=== PATIENT | male | born 1945 | race Hispanic/Latino ===

== ENCOUNTER 2025-06-25 09:11 | Emergency (ER) | payer OTHER ==
[~2025-06-25] VITALS: Ht 175.3 cm; Wt 95.3 kg
--- NOTE | 2025-06-25 10:51 | ERN ---
General Chief Complaint: Urinary Retention Stated Complaint: URINARY RETENTION Time Seen by MD: 09:16 Source: patient History of Present Illness Initial Comments Patient is a an 80-year-old male coming in complaining of Alexander catheter malfunction. Per patient he has a Alexander catheter placed a couple of days ago but noticed that last night it was not working. He is here for further evaluation. Allergies: Coded Allergies: No Known Drug Allergies (Unverified Allergy, Unknown, 06/25/25) Past Medical History Past Medical History: Hypertension, Other Medical History Other: prostate issue Past Surgical History: None ROS Dictation CONSTITUTIONAL: No chills, no fever, no weakness, no diaphoresis, no malaise. HEAD/FACE: No signs of trauma. EENT: No eye pain, no blurred vision, no tearing, no double vision, no ear pain, no ear discharge, no nose pain, no nasal congestion, no throat pain, no throat swelling, no mouth pain. RESPIRATORY: No cough, no orthopnea, no SOB, no stridor, no wheezing. CARDIOVASCULAR: No chest pain, no edema, no palpitations, no syncope. GASTROINTESTINAL/ABDOMINAL: No abdominal pain, no constipation, no diarrhea, no nausea, no vomiting. GENITOURINARY: No abnormal discharge, no dysuria, no frequent urination, no hematuria. No complaints of pain in the genitals. MUSCULOSKELETAL: No back pain, no gout, no joint pain, no joint swelling, no muscle pain, no muscle stiffness, no neck pain. INTEGUMENTARY: No change in color, no change in hair/nails, no dryness, no lesion, no lumps, no rash. NEUROLOGICAL/PSYCH: No anxiety, not depressed, no emotional problem, no headache, no numbness, no pre-existing deficit, no history of seizures, no tremors, no weakness. HEMATOLOGIC/LYMPHATIC: Not anemic, no history of blood clots, no apparent bleeding, no bruising, glands not swollen. All Systems Negative, Except as Noted. Physical Exam Physical Exam Dictation VITAL SIGNS: Reviewed. GENERAL APPEARANCE: Alert, oriented x3, no acute distress, obese. HEAD AND FACE: Non-traumatic. EYES: PERRL, pink conjunctivas, eyelid no trauma, anterior chamber clear. EARS: Pinnas intact and no signs of trauma or erythema. Ear canals clear and no discharge. TMs no erythema. NOSE: No discharge, no bleeding. OROPHARYNX: Mouth normal, teeth no caries, tongue pink. Pharynx clear, no erythema. Tonsils no exudates, no abscesses noted. Mucous membrane moist. NECK: Supple, non-tender, no thyromegaly, no masses, no JVD, no bruits. BREAST: Deferred. CHEST: No tenderness, no crepitus, no paradoxical movement, no retractions. LUNGS: Clear, well-ventilated, symmetric, no rales, no wheezing, no rhonchi, no stridor, good breath sounds bilaterally. HEART: Regular rate, regular rhythm, no murmur, no gallops. VASCULAR: No peripheral edema. ABDOMEN: Soft, positive bowel sounds, nondistended, no guarding, nontender, no rebound, no masses no hepatomegaly, no splenomegaly, no Moreno's sign, no hernias. RECTAL: Deferred. GENITAL: Alexander catheter in place leaking NEUROLOGICAL: Normal speech, gross motor function intact, gross sensory function intact. MUSCULOSKELETAL: Neck nontender, full range of motion, back nontender, full range of motion. EXTREMITIES: Nontender, full range of motion. SKIN: Color pink, dry, no turgor, no rash, no lacerations, no abrasions, no contusions. LYMPHATICS: Deferred. Results Laboratory and Microbiology Labs Reviewed?: Yes MDM MDM: Differential diagnosis: Alexander catheter malfunction, Alexander catheter replacement, BPH Rationale: Tests considered and ordered secondary to shared decision making include: Previous outside records reviewed: Old ER visits. Risk of complication and/or morbidity or mortality of patient management: None Medications-Per medication reconciliation Need for hospitalization: Patient does not meet criteria for hospitalization. Need for emergency major/minor surgery: No Patient is a an 80-year-old gentleman coming in due to Alexander catheter malfunction. Alexander catheter was replaced working properly patient will be discharged in stable condition. ED Course Orders Procedure Category Date Status Time *Nursing CPOE 06/25/25 Transmitted Communication: 09:56 Vital Signs Date Time Temp Pulse Resp B/P (MAP) Pulse Ox O2 Delivery O2 Flow Rate FiO2 06/25/25 11:02 97.7 60 18 133/66 97 Room Air* 0 21 06/25/25 09:21 97.5 58 18 136/62 96 Room Air* 0 21 06/25/25 09:16 97.5 58 18 136/62 96 Room Air 0 DX & DISP Disposition: Discharge Departure Impression: Primary Impression: Malfunction of Alexander catheter Condition: Stable Additional Instructions: FOLLOW-UP WITH PRIMARY CARE PROVIDER IN 1 TO 2 DAYS. TAKE MEDICATIONS DIRECTED HERE IN THE EMERGENCY ROOM. OKAY TO CONTINUE HOME MEDICATIONS UNLESS OTHERWISE DISCUSSED DURING YOUR VISIT IN THE EMERGENCY ROOM TODAY. RETURN TO YOUR NEAREST EMERGENCY ROOM IF SYMPTOMS WORSEN OR IF THERE IS NO IMPROVEMENT. CALL 911 IF YOU NEED IMMEDIATE ASSISTANCE. TAKE TYLENOL [id number] NEEDED AND IF NO CONTRAINDICATIONS ARE PRESENT. INCREASE ORAL HYDRATION. A WOUND CULTURE OR URINE CULTURE WAS ORDERED HERE IN THE EMERGENCY ROOM DEPARTMENT PLEASE FOLLOW-UP WITH PRIMARY CARE PROVIDER AND ADVISE THEM TO GET REPORTS FROM OUR FACILITY. IF YOU HAD ANY ARSENIO WRAP/SPLINTS THAT WERE APPLIED HERE, PLEASE DO NOT REMOVE THEM UNTIL YOU SEE YOUR PRIMARY CARE OR SPECIALTY. Referrals: Referrals: ULISES IBRAHIM MD (PCP) STACY COULTER MD Time of Disposition: 11:06 OZIEL HOOKS MD Jun 25, 2025 10:51
[2025-06-25 11:02] VITALS: BP 133/66; PULSE 60; RESP 18; TEMP 97.7; O2SAT 97
--- NOTE | 2025-06-25 11:12 | NUR ---
REPLACED BERRIOS CATHETER AND LEG BAG, PT TOLERATED WELL. LEG BAG INSTRUCTIONS PROVIDED TO PT.
== END 2025-06-25 11:13 | disposition home or self-care (01) ==
LOC: EDH 09:11
DX: T83.011A Breakdown (mechanical) of indwelling urethral catheter, initial encounter (principal); I10 Essential (primary) hypertension; Y73.8 Miscellaneous gastroenterology and urology devices associated with adverse incidents, not elsewhere classified
CPT/HCPCS: 51702; 99284

== ENCOUNTER 2025-07-12 19:02 | Emergency (ER) | payer OTHER ==
[~2025-07-12] VITALS: Ht 175.3 cm; Wt 99.8 kg
--- NOTE | 2025-07-12 19:57 | NUR ---
ASSUMED PT CARE AT THIS TIME
--- NOTE | 2025-07-12 20:10 | NUR ---
PATIENT STATED BERRIOS INSERTED 2 WEEKS AGO
[2025-07-12 20:11] VITALS: BP 143/70; PULSE 58; RESP 18; TEMP 98; O2SAT 98
--- NOTE | 2025-07-12 20:15 | NUR ---
leg bag changed as ordered
--- NOTE | 2025-07-12 20:16 | ERN ---
General Chief Complaint: Urinary Catheter Problems Stated Complaint: BERRIOS ISSUES Time Seen by MD: 19:09 History of Present Illness Initial Comments 80-year-old male came in for evaluation of his Berrios leg bag which has been leaking. Patient otherwise has no concerns. Allergies: Coded Allergies: No Known Drug Allergies (Unverified Allergy, Unknown, 06/25/25) Past Medical History Past Medical History: High Cholesterol, Other Medical History Other: URINARY RETENTION Past Surgical History: None ROS Dictation None Physical Exam General Appearance: (+) no apparent distress Orientation: (+) alert, (+) oriented x 3 Respiratory: (+) chest non-tender, (+) lungs clear Heart: (+) regular, (+) no gallop Gastrointestinal: (+) soft, (+) non-tender, (+) no organomegaly, (+) bowel vandana nd present MDM MDM: Differential diagnosis: Rationale: Tests considered and ordered secondary to shared decision making include: Previous outside records reviewed: Old ER visits. Risk of complication and/or morbidity or mortality of patient management: None Medications-Per medication reconciliation Need for hospitalization: Patient does not meet criteria for hospitalization. Need for emergency major/minor surgery: No There are no social concerns with this patient. Prescription drug management Prescriptions will include symptomatic care Patient's prior external medical records from other ER visits were reviewed by me as indicated. Prior testing and results from previous visits were reviewed. Prior tests were taken into account with medical decision making and resource utilization, independent historian/historians were used to obtain complete medic al history. I independently interpreted the test that were performed, results were reviewed by me and considered findings on radiology if ordered. Medical management and examination interpretation discussions were had by me with other qualified healthcare professionals as indicated for the patient's care. ED Course Vital Signs Date Time Temp Pulse Resp B/P (MAP) Pulse Ox O2 Delivery O2 Flow Rate FiO2 07/12/25 20:11 98.1 58 18 143/70 98 Room Air* 0 21 07/12/25 19:08 97.9 60 20 176/70 98 Room Air DX & DISP Disposition: Discharge Departure Impression: Primary Impression: Malfunction of Berrios catheter Condition: Stable Referrals: ULISES IBRAHIM MD (PCP) ESTUARDO JUNIOR MD Jul 12, 2025 20:16
== END 2025-07-12 20:48 | disposition home or self-care (01) ==
LOC: EDH 19:02
DX: T83.038A Leakage of other urinary catheter, initial encounter (principal); E78.00 Pure hypercholesterolemia, unspecified; Y73.8 Miscellaneous gastroenterology and urology devices associated with adverse incidents, not elsewhere classified
CPT/HCPCS: 99282

== ENCOUNTER 2025-07-19 18:19 | Emergency (ER) | payer OTHER ==
[~2025-07-19] VITALS: Ht 175.3 cm; Wt 99.8 kg
--- NOTE | 2025-07-19 18:29 | ERN ---
ED Note History of Present Illness Stated Complaint: BERRIOS CATH PROBLEM Chief Complaint: Urinary Catheter Problems Time Seen by MD: 18:21 Dictation: PATIENT IS AN 80-YEAR-OLD MALE COMING IN TODAY WITH COMPLAINTS OF HAVING LEAKING FROM HIS BERRIOS CATHETER. HE STATES THE BERRIOS CATHETER WAS RELEASED LAST NIGHT AT THE [facility] IN [place], [place]. HE STATES HE HAS HAS A BERRIOS CATHETER APPROXIMATELY A MONTH WHEN HE WENT TO THE [facility] TO HAVE IT CHANGED YESTERDAY BECAUSE OF RETENTION. URINALYSIS WAS COLLECTED AND SENT BY THE FACILITY, HE WAS STARTED [id number] P.O. B.I.D.. NO PAIN. Allergies: Coded Allergies: No Known Drug Allergies (Unverified Allergy, Unknown, 06/25/25) Past Medical History Past Medical History: GERD, High Cholesterol, Other Additional Past Medical Hx: URINARY RETENTION Surgical History: None RN Note Reviewed/Agreed w/PFSH: Yes Review of System Dictation CONSTITUTIONAL: NEGATIVE EXCEPT FOR HPI HEAD/FACE: NEGATIVE EXCEPT FOR HPI EENT: NEGATIVE EXCEPT FOR HPI RESPIRATORY: NEGATIVE EXCEPT FOR HPI GASTROINTESTINAL/ABDOMINAL: NEGATIVE EXCEPT FOR HPI GENITOURINARY: NEGATIVE EXCEPT FOR HPI LEAKING BERRIOS CATHETER MUSCULOSKELETAL: NEGATIVE EXCEPT FOR HPI INTEGUMENTARY: NEGATIVE EXCEPT FOR HPI NEUROLOGICAL/PSYCH: NEGATIVE EXCEPT FOR HPI HEMATOLOGIC/LYMPHATIC: NEGATIVE EXCEPT FOR HPI ALL SYSTEMS NEGATIVE, EXCEPT NOTED ABOVE. 13 POINT REVIEW OF SYSTEMS ASSESSED AND ALL NEGATIVE EXCEPT FOR ABOVE. Initial Vital Sign VS Vital Signs Date Time Temp Pulse Resp B/P (MAP) Pulse Ox O2 Delivery O2 Flow Rate FiO2 07/19/25 18:21 97.9 65 18 166/72 97 Room Air 0 07/19/25 18:30 21 Physical Exam Dictation VITAL SIGNS REVIEWED GENERAL APPEARANCE: ALERT, ORIENTED X 3, NO ACUTE DISTRESS, WELL DEVELOPED, NOURISHED. HEAD AND FACE: NON-TRAUMATIC. EYES: PERRL, PINK CONJUNCTIVAS, EYELID NO TRAUMA, ANTERIOR CHAMBER WITH ARCUS SENILIS. EARS: PINNAS INTACT AND NO SIGNS OF TRAUMA OR ERYTHEMA EAR CANALS CLEAR AND NO DISCHARGE TM NO ERYTHEMA NOSE: NO DISCHARGE, NO BLEEDING. OROPHARYNX: MOUTH NORMAL, TONGUE PINK, PHARYNX CLEAR,NO ERYTHEMA, TONSILS NO EXUDATES, NO ABSCESSES NOTED, MUCOUS MEMBRANE MOIST NECK: SUPPLE, NON-TENDER, NO THYROMEGALY, NO MASSES, NO JVD, NO BRUITS BREAST:DEFERRED CHEST:NO TENDERNESS, NO CREPITUS, NO PARADOXICAL MOVEMENT, NO RETRACTIONS LUNGS:CLEAR, WELL-VENTILATED, SYMMETRIC, NO RALES, NO WHEEZING, NO RHONCHI, NO STRIDOR, GOOD BREATH SOUNDS BILATERALLY HEART: REGULAR RATE, REGULAR RHYTHM, NO MURMUR, NO GALLOPS VASCULAR: NO PERIPHERAL EDEMA, ABDOMEN: SOFT, POSITIVE BOWEL SOUNDS, NONDISTENDED, NO GUARDING, NONTENDER, NO REBOUND, NO MASSES NO HEPATOMEGALY, NO SPLENOMEGALY, NO LU'S SIGN, NO HERNIAS. RECTAL: DEFERRED GENITAL: BERRIOS CATHETER IN PLACE WITH CLEAR ALECIA URINE IN BAG. BLADDER NOT PALPABLE. TWENTY YI BERRIOS CATHETERIZATION IN PLACE NEUROLOGICAL: NORMAL SPEECH, MOTOR FUNCTION INTACT, SENSORY FUNCTION INTACT MUSCULOSKELETAL: NECK NONTENDER, FULL RANGE OF MOTION, BACK NONTENDER, FULL RANGE OF MOTION, EXTREMITIES: NONTENDER, FULL RANGE OF MOTION SKIN: COLOR PINK, DRY, NO TURGOR, NO RASH, NO LACERATIONS, NO ABRASIONS, NO CONTUSIONS. LYMPHATIC: DEFERRED Results (Laboratory/Radiology) Labs Reviewed?: Yes ED Course ED Course Orders Procedure Category Date Status Time Bladder Scan CPOE 07/19/25 Transmitted 18:25 Phenazopyridine Hcl PHA 07/19/25 Complete 200 Mg Tab (Pyridium 18:30 Current Medications Medications (Trade) Dose Ordered Sig/Sally Route PRN Reason Start Time Stop Time Status Last Admin Dose Admin Phenazopyridine HCl (PYRIdium HCL 200 MG TAB) 200 mg ONCE ONCE PO 07/19/25 18:30 07/19/25 18:31 DC 07/19/25 19:02 Vital Signs Date Time Temp Pulse Resp B/P (MAP) Pulse Ox O2 Delivery O2 Flow Rate FiO2 07/19/25 18:30 97.9 65 12 166/72 97 Room Air* 0 21 07/19/25 18:21 97.9 65 18 166/72 97 Room Air 0 1908/PATIENT HAS A 150 CC ON BLADDER SCAN. BERRIOS CATHETER IS DRAINING. PATIENT HAS A 20 YI BERRIOS CATHETER IN PLACE THAT WAS PLACED LAST NIGHT. HE WILL BE TREATED FOR BLADDER SPASM WITH PYRIDIUM TOLD SEE HIS PRIMARY CARE DOCTOR Medical Decision Making MDM MEDICAL DECISION-MAKING BASED ON HPI, ASSESSMENT OF BERRIOS CATHETER AND BLADDER SCAN. PATIENT HAS 150 CC URINE IN BLADDER BERRIOS CATHETER DRAINING CLEAR ALECIA URINE. STRONGLY SUSPECT BLADDER SPASM HAS A ETIOLOGY FOR LEAK VERSUS MALFUNCTION PATIENT GIVEN PYRIDIUM AND HAVE HIM FOLLOW UP WITH HIS PRIMARY CARE DOCTOR. DX & DISP Disposition: Discharge Departure Impression: Primary Impression: Bladder spasms Additional Impression: Berrios catheter in place Condition: Stable Scripts Phenazopyridine HCl (Pyridium) 200 Mg Tab 200 MG PO TIDPC for 3 Days, #9 TAB TAKE WITH FOOD TO PREVENT STOMACH UPSET. Prov: MOE LOYOLA 07/19/25 Additional Instructions: FOLLOW-UP WITH PRIMARY CARE PROVIDER IN 1 TO 2 DAYS. TAKE MEDICATIONS D IRECTED HERE IN THE EMERGENCY ROOM. OKAY TO CONTINUE HOME MEDICATIONS UNLESS OTHERWISE DISCUSSED DURING YOUR VISIT IN THE EMERGENCY ROOM TODAY. RETURN TO YOUR NEAREST EMERGENCY ROOM IF SYMPTOMS WORSEN OR IF THERE IS NO IMPROVEMENT. CALL 911 IF YOU NEED IMMEDIATE ASSISTANCE. TAKE TYLENOL OR MOTRIN [id number] NEEDED AND IF NO CONTRAINDICATIONS ARE PRESENT. INCREASE ORAL HYDRATION. A WOUND CULTURE OR URINE CULTURE WAS ORDERED HERE IN THE EMERGENCY ROOM DEPARTMENT PLEASE FOLLOW-UP WITH PRIMARY CARE PROVIDER AND ADVISE THEM TO GET REPEAT PORTS FROM OUR FACILITY. IF YOU HAD ANY ARSENIO WRAP/SPLINTS THAT WERE APPLIED HERE, PLEASE DO NOT REMOVE THEM UNTIL YOU SEE YOUR PRIMARY CARE OR SPECIALTY. CONTINUE AUGMENTIN FROM YOUR ER VISIT LAST NIGHT. TAKE PYRIDIUM DIRECTED 3 TIMES A DAY FOR THE NEXT THREE DAYS. REMEMBER THAT THIS WILL TURN YOUR URINE ORANGE RED. INCREASE YOUR WATER INTAKE AND SEE YOUR PRIMARY CARE DOCTOR IN THE NEXT 1-2 DAYS FOR Referrals: ULISES IBRAHIM MD (PCP) Time of Disposition: 19:10 I have reviewed the case, and I agree with, Diagnosis and Plan MOE LOYOLA Jul 19, 2025 18:29
[2025-07-19] MEDS: PHENAZOpyridine HCL 200 MG TAB 200 MG TABLET PO ONE (19:02)
[2025-07-19] MEDS ORDERED: PHEN-847 PO (19:11)
[2025-07-19 19:16] VITALS: BP 156/66; PULSE 66; RESP 12; TEMP 98.1; O2SAT 98
== END 2025-07-19 19:36 | disposition home or self-care (01) ==
LOC: EDH 18:19
DX: N32.89 Other specified disorders of bladder (principal); E78.00 Pure hypercholesterolemia, unspecified
CPT/HCPCS: 99284

== ENCOUNTER 2025-07-23 18:47 | Emergency (ER) | payer OTHER ==
[~2025-07-23] VITALS: Ht 177.8 cm; Wt 99.5 kg
[~2025-07-23 18:47] MED LIST: PHEN-847 PO
--- NOTE | 2025-07-23 19:54 | ERN ---
General Chief Complaint: Urinary Catheter Problems Stated Complaint: BERRIOS LEAKING Time Seen by MD: 19:48 Source: patient History of Present Illness Initial Comments PATIENT IS A AN 80-YEAR-OLD GENTLEMAN COMING IN COMPLAINING OF A BERRIOS CATHETER PROBLEM. PER PATIENT HE NOTICED BERRIOS CATHETER LEAKING A COUPLE OF DAYS AGO. HE IS HERE FOR FURTHER EVALUATION. Allergies: Coded Allergies: No Known Drug Allergies (Unverified Allergy, Unknown, 06/25/25) Home Meds Active Scripts Phenazopyridine HCl (Pyridium) 200 Mg Tab, 200 MG PO TIDPC for 3 Days, #9 TAB TAKE WITH FOOD TO PREVENT STOMACH UPSET. Prov:MOE LOYOLA CRISIS WORKER 07/19/25 Past Medical History Past Medical History: GERD, High Cholesterol, Other Medical History Other: BPH Past Surgical History: Other Surgical History Other: HEADINJURY-SX ROS Dictation CONSTITUTIONAL: NO CHILLS, NO FEVER, NO WEAKNESS, NO DIAPHORESIS, NO MALAISE. HEAD/FACE: NO SIGNS OF TRAUMA. EENT: NO EYE PAIN, NO BLURRED VISION, NO TEARING, NO DOUBLE VISION, NO EAR PAIN, NO EAR DISCHARGE, NO NOSE PAIN, NO NASAL CONGESTION, NO THROAT PAIN, NO THROAT SWELLING, NO MOUTH PAIN. RESPIRATORY: NO COUGH, NO ORTHOPNEA, NO SOB, NO STRIDOR, NO WHEEZING. CARDIOVASCULAR: NO CHEST PAIN, NO EDEMA, NO PALPITATIONS, NO SYNCOPE. GASTROINTESTINAL/ABDOMINAL: NO ABDOMINAL PAIN, NO CONSTIPATION, NO DIARRHEA, NO NAUSEA, NO VOMITING. GENITOURINARY: NO ABNORMAL DISCHARGE, DYSURIA, NO FREQUENT URINATION, NO HEMATURIA. COMPLAINTS OF PAIN IN THE GENITALS. MUSCULOSKELETAL: NO BACK PAIN, NO GOUT, NO JOINT PAIN, NO JOINT SWELLING, NO MUSCLE PAIN, NO MUSCLE STIFFNESS, NO NECK PAIN. INTEGUMENTARY: NO CHANGE IN COLOR, NO CHANGE IN HAIR/NAILS, NO DRYNESS, NO LESION, NO LUMPS, NO RASH. NEUROLOGICAL/PSYCH: NO ANXIETY, NOT DEPRESSED, NO EMOTIONAL PROBLEM, NO HEADACHE, NO NUMBNESS, NO PRE-EXISTING DEFICIT, NO HISTORY OF SEIZURES, NO TREMORS, NO WEAKNESS. HEMATOLOGIC/LYMPHATIC: NOT ANEMIC, NO HISTORY OF BLOOD CLOTS, NO APPARENT BLEEDING, NO BRUISING, GLANDS NOT SWOLLEN. ALL SYSTEMS NEGATIVE, EXCEPT NOTED. Physical Exam Physical Exam Dictation VITAL SIGNS: REVIEWED. GENERAL APPEARANCE: ALERT, ORIENTED X3, NO ACUTE DISTRESS, OBESE. HEAD AND FACE: NON-TRAUMATIC. EYES: PERRL, PINK CONJUNCTIVAS, EYELID NO TRAUMA, ANTERIOR CHAMBER CLEAR. EARS: PINNAS INTACT AND NO SIGNS OF TRAUMA OR ERYTHEMA. EAR CANALS CLEAR AND NO DISCHARGE. TMS NO ERYTHEMA. NOSE: NO DISCHARGE, NO BLEEDING. OROPHARYNX: MOUTH NORMAL, TEETH NO CARIES, TONGUE PINK. PHARYNX CLEAR, NO ERYTHEMA. TONSILS NO EXUDATES, NO ABSCESSES NOTED. MUCOUS MEMBRANE MOIST. NECK: SUPPLE, NON-TENDER, NO THYROMEGALY, NO MASSES, NO JVD, NO BRUITS. BREAST: DEFERRED. CHEST: NO TENDERNESS, NO CREPITUS, NO PARADOXICAL MOVEMENT, NO RETRACTIONS. LUNGS: CLEAR, WELL-VENTILATED, SYMMETRIC, NO RALES, NO WHEEZING, NO RHONCHI, NO STRIDOR, GOOD BREATH SOUNDS BILATERALLY. HEART: REGULAR RATE, REGULAR RHYTHM, NO MURMUR, NO GALLOPS. VASCULAR: NO PERIPHERAL EDEMA. ABDOMEN: SOFT, POSITIVE BOWEL SOUNDS, NONDISTENDED, NO GUARDING, NONTENDER, NO REBOUND, NO MASSES NO HEPATOMEGALY, NO SPLENOMEGALY, NO LU'S SIGN, NO HERNIAS. RECTAL: DEFERRED. GENITAL: DEFERRED. NEUROLOGICAL: NORMAL SPEECH, GROSS MOTOR FUNCTION INTACT, GROSS SENSORY FU NCTION INTACT. MUSCULOSKELETAL: NECK NONTENDER, FULL RANGE OF MOTION, BACK NONTENDER, FULL RANGE OF MOTION. EXTREMITIES: NONTENDER, FULL RANGE OF MOTION. SKIN: COLOR PINK, DRY, NO TURGOR, NO RASH, NO LACERATIONS, NO ABRASIONS, NO CONTUSIONS. LYMPHATICS: DEFERRED. MDM MDM: DIFFERENTIAL DIAGNOSIS: URINE BERRIOS CATHETER PROBLEM, BERRIOS CATHETER PROBLEM RATIONALE: TESTS CONSIDERED AND ORDERED SECONDARY TO SHARED DECISION MAKING INCLUDE: PREVIOUS OUTSIDE RECORDS REVIEWED: OLD ER VISITS. RISK OF COMPLICATION AND/OR MORBIDITY OR MORTALITY OF PATIENT MANAGEMENT: NONE MEDICATIONS-PER MEDICATION RECONCILIATION NEED FOR HOSPITALIZATION: PATIENT DOES NOT MEET CRITERIA FOR HOSPITALIZATION. NEED FOR EMERGENCY MAJOR/MINOR SURGERY: NO THERE ARE NO SOCIAL CONCERNS WITH THIS PATIENT. PRESCRIPTION DRUG MANAGEMENT PRESCRIPTIONS WILL INCLUDE SYMPTOMATIC CARE PATIENT'S PRIOR EXTERNAL MEDICAL RECORDS FROM OTHER ER VISITS WERE REVIEWED BY ME INDICATED. PRIOR TESTING AND RESULTS FROM PREVIOUS VISITS WERE REVIEWED. PRIOR TESTS WERE TAKEN INTO ACCOUNT WITH MEDICAL DECISION MAKING AND RESOURCE UTILIZATION, INDEPENDENT HISTORIAN/HISTORIANS WERE USED TO OBTAIN COMPLETE MEDICAL HISTORY. I INDEPENDENTLY INTERPRETED THE TEST THAT WERE PERFORMED, RESULTS WERE REVIEWED BY ME AND CONSIDERED FINDINGS ON RADIOLOGY IF ORDERED. MEDICAL MANAGEMENT AND EXAMINATION INTERPRETATION DISCUSSIONS WERE HAD BY ME WITH OTHER QUALIFIED HEALTHCARE PROFESSIONALS INDICATED FOR THE PATIENT'S CARE. ED Course Orders Procedure Category Date Status Time Maintain Berrios CPOE 07/23/25 Transmitted 19:55 Vital Signs Date Time Temp Pulse Resp B/P (MAP) Pulse Ox O2 Delivery O2 Flow Rate FiO2 07/23/25 19:45 97.7 61 18 144/63 96 Room Air 11:57 p.m.: Berrios replaced. Larger Berrios inserted. Delay of care secondary to lack of nurses and lack of rooms. We will discharge the patient home DX & DISP Disposition: Discharge Departure Impression: Primary Impression: Malfunction of Berrios catheter Additional Impression: Encounter for Berrios catheter replacement Condition: Stable Referrals: ULISES IBRAHIM MD (PCP) OZIEL HOOKS MD Jul 23, 2025 19:54 JEFFRY BERGMAN MD Jul 23, 2025 23:59
--- NOTE | 2025-07-23 23:48 | NUR ---
PT CARE ASSUMED AT THIS TIME
[2025-07-24 00:28] VITALS: BP 144/72; PULSE 75; RESP 17; TEMP 98.2; O2SAT 100
== END 2025-07-24 00:44 | disposition home or self-care (01) ==
LOC: EDH 18:47
DX: T83.031A Leakage of indwelling urethral catheter, initial encounter (principal); K21.9 Gastro-esophageal reflux disease without esophagitis; E78.00 Pure hypercholesterolemia, unspecified; Z46.6 Encounter for fitting and adjustment of urinary device; Y73.8 Miscellaneous gastroenterology and urology devices associated with adverse incidents, not elsewhere classified; Y84.6 Urinary catheterization as the cause of abnormal reaction of the patient, or of later complication, without mention of misadventure at the time of the procedure
CPT/HCPCS: 51702; 99281; 99282; 99284

== ENCOUNTER 2025-07-24 12:43 | Emergency (ER) | payer OTHER ==
[~2025-07-24] VITALS: Ht 175.3 cm; Wt 99.8 kg
[2025-07-24 12:45] VITALS: BP 149/63; PULSE 56; RESP 18; TEMP 97.7
--- NOTE | 2025-07-24 13:16 | NUR ---
PT WAS TOLD TO WAIT IN LOBBY DUE TO NO ROOMS BEING AVAILABLE. REGISTRATION CALLED HIS NAME AND NO ANSWER. SECURITY AWARE.
--- NOTE | 2025-07-24 13:32 | ERN ---
ED Note History of Present Illness Stated Complaint: BERRIOS PROBLEM Chief Complaint: Urinary Catheter Problems Time Seen by MD: 12:47 Time Seen by Midlevel: 12:48 Dictation: 80-year-old male presents to the emergency department due to reported having so me dribbling around the Berrios catheter. He denies having any fever, chills, flank pain or abdominal pain. There is no report of any testicular pain. Upon initial evaluation, the patient presents in no acute distress. Allergies: Coded Allergies: No Known Drug Allergies (Unverified Allergy, Unknown, 06/25/25) Emergency Care CLEANING MATRON: None Home Meds Active Scripts Phenazopyridine HCl (Pyridium) 200 Mg Tab, 200 MG PO TIDPC for 3 Days, #9 TAB TAKE WITH FOOD TO PREVENT STOMACH UPSET. Prov:MOE LOYOLA HOT MIX OPERATOR 07/19/25 Past Medical History Past Medical History: High Cholesterol, Hypertension Additional Past Medical Hx: BPH Surgical History: Other Surgical History Other: HEAD SX, ABD SX RN Note Reviewed/Agreed w/PFSH: Yes Review of System Dictation : With the Berrios catheter. Initial Vital Sign VS Vital Signs Date Time Temp Pulse Resp B/P (MAP) Pulse Ox O2 Delivery O2 Flow Rate FiO2 07/24/25 12:45 97.7 56 18 149/63 97 Physical Exam Dictation General: awake, alert, NAD Head/Face: Normocephalic, atraumatic Eyes: PERRL, EOMI ENT: Oral mucosa moist Neck: Trachea midline, supple Cardiovascular: RRR, no edema Respiratory: Symmetrical, non-labored Abdomen: Soft, non-tender, non-distended, no guarding. : Indwelling Berrios catheter with a clear earlier Skin: Warm, dry, good turgor, no rash MS/Extremity: Pulses equal, no cyanosis, neurovascular intact, FROM Neuro: COAx4, GCS 15, steady gait, Psych: Normal behavior, mood, and affect normal ED Course ED Course Vital Signs Date Time Temp Pulse Resp B/P (MAP) Pulse Ox O2 Delivery O2 Flow Rate FiO2 07/24/25 12:45 97.7 56 18 149/63 97 Medical Decision Making MDM MDM: Differential diagnosis: UTI, Berrios catheter evaluation, Berrios catheter malfunction. Rationale: Tests considered and ordered secondary to shared decision making include: Previous outside records reviewed: Old ER visits. Risk of complication and/or morbidity or mortality of patient management: None Medications-Per medication reconciliation Need for hospitalization: Patient does not meet criteria for hospitalization. Need for emergency major/minor surgery: No There are no social concerns with this patient. Prescription drug management Prescriptions will include symptomatic care Patient's prior external medical records from other ER visits were reviewed by me as indicated. Prior testing and results from previous visits were reviewed. Prior tests were taken into account with medical decision making and resource utilization, independent historian/historians were used to obtain complete medical history. I independently interpreted the test that were performed, results were reviewed by me and considered findings on radiology if ordered. Medical management and examination interpretation discussions were had by me with other qualified healthcare professionals as indicated for the patient's care. Patient eloped. DX & DISP Disposition: Other(Comment) Departure Impression: Primary Impression: Malfunction of Berrios catheter Condition: Stable Referrals: ULISES IBRAHIM MD (PCP) ATTESTATION BY PHYSICIAN I PERFORMED THE SUBSTANTIVE PORTION OF THE VISIT. I HAVE REVIEWED AND PERSONALLY MADE AND APPROVED THE MANAGEMENT PLAN THAT IS DOCUMENTED IN THE NOTE BY MYSELF FOR THE A PP. KESHA PERALTA Jul 24, 2025 13:32 OZIEL HOOKS MD Jul 27, 2025 07:42
== END 2025-07-24 15:27 | disposition left against medical advice (07) ==
LOC: EDH 12:43
DX: T83.091A Other mechanical complication of indwelling urethral catheter, initial encounter (principal); E78.00 Pure hypercholesterolemia, unspecified; I10 Essential (primary) hypertension; Y73.8 Miscellaneous gastroenterology and urology devices associated with adverse incidents, not elsewhere classified
CPT/HCPCS: 99281; 99282